=== PATIENT | male | born 1985 | race American Indian/Alaskan Native ===

== ENCOUNTER 2020-12-14 08:58 | Emergency (ER) | payer SELFPAY ==
--- NOTE | 2020-12-14 09:28 | Emergency Department Report ---
ED ENT HPI - General Chief complaint: Dental/Oral Stated complaint: ABCESS Time Seen by Provider: 12/14/20 09:06 Source: patient Mode of arrival: Ambulatory Limitations: No Limitations - History of Present Illness Initial comments: The patient was evaluated in the emergency department for symptoms described in the history of present illness. He/she was evaluated in the context of the global COVID-19 pandemic, which necessitated consideration that the patient might be at risk for infection with the virus that causes COVID-19. Institutional protocols and algorithms that pertain to the evaluation of patients at risk for COVID-19 are in a state of rapid change based on information released by regulatory bodies including the CDC and federal and sta organizations. These policies and algorithms were followed during the patient's care in the emergency department. Please note that these policies, procedures and recommendations changed on a rapid basis. 35-year-old male presents to the emergency room for right lower jaw abscess x2 days. Patient states he is aware that he has had bad tooth. He denies any past medical history currently takes no medications on a daily basis. No known drug allergies. Patient is a transgender. For first to go by a male. He reports that he had broke his tooth from eating ice because of low iron. Patient does report history of heavy menstrual cycle. Patient is okay for me to referral to a [facility]. MD complaint: tooth pain Onset/Timin -: days(s) Location: tooth # (1) Severity scale (0 -10): 9 Quality: stabbing, sharp Consistency: constant Improves with: none Worsens with: none Context- Dental: history of dental caries, poor dental care Associated Symptoms: gum swelling, toothache - Related Data Previous Rx's Medication Instructions Recorded Last Taken Type Amoxicillin/K Clav Tab [Augmentin 1 tab PO Q12HR 10 Days #20 tab 12/14/20 Unknown Rx 875 mg] Naproxen 500 mg PO Q12H PRN #20 tablet 12/14/20 Unknown Rx Allergies Allergy/AdvReac Type Severity Reaction Status Date / Time No Known Allergies Allergy Unverified 12/14/20 09:03 ED Dental HPI - General Chief complaint: Dental/Oral Stated complaint: ABCESS Time Seen by Provider: 12/14/20 09:06 Source: patient Mode of arrival: Ambulatory Limitations: No Limitations - Related Data Previous Rx's Medication Instructions Recorded Last Taken Type Amoxicillin/K Clav Tab [Augmentin 1 tab PO Q12HR 10 Days #20 tab 12/14/20 Unknown Rx 875 mg] Naproxen 500 mg PO Q12H PRN #20 tablet 12/14/20 Unknown Rx Allergies Allergy/AdvReac Type Severity Reaction Status Date / Time No Known Allergies Allergy Unverified 12/14/20 09:03 ED Review of Systems ROS: Stated complaint: ABCESS Other details as noted in HPI Comment: All other systems reviewed and negative ED Past Medical Hx - Past Medical History Previous Medical History?: No - Surgical History Past Surgical History?: No - Medications Home Medications: Home Medications Medication Instructions Recorded Confirmed Last Taken Type Amoxicillin/K Clav Tab [Augmentin 1 tab PO Q12HR 10 Days #20 tab 12/14/20 Un known Rx 875 mg] Naproxen 500 mg PO Q12H PRN #20 tablet 12/14/20 Unknown Rx ED Physical Exam - General Limitations: No Limitations General appearance: alert, in no apparent distress - Head Head exam: Present: atraumatic, normocephalic - Eye Eye exam: Present: normal appearance - ENT ENT exam: Present: mucous membranes moist - Expanded ENT Exam Expanded Teeth exam: Present: dental caries, dental tenderness #, gingival enlargement - Neck Neck exam: Present: normal inspection - Respiratory Respiratory exam: Present: normal lung sounds bilaterally. Absent: respiratory distress - Cardiovascular Cardiovascular Exam: Present: regular rate, normal rhythm. Absent: systolic murmur, diastolic murmur, rubs, gallop - GI/Abdominal GI/Abdominal exam: Present: soft, normal bowel sounds - Rectal Rectal exam: Present: deferred - Extremities Exam Extremities exam: Present: normal inspection - Back Exam Back exam: Present: normal inspection - Neurological Exam Neurological exam: Present: alert, oriented X3 - Psychiatric Psychiatric exam: Present: normal affect, normal mood - Skin Skin exam: Present: warm, dry, intact, normal color. Absent: rash ED Course Vital Signs 12/14/20 12/14/20 09:02 09:48 Temperature 99.2 F Pulse Rate 79 76 Respiratory 16 16 Rate Blood Pressure 122/75 Blood Pressure 108/71 [Left] O2 Sat by Pulse 99 100 Oximetry ED Medical Decision Making - Medical Decision Making 35-year-old male presents to the emergency room for right lower jaw abscess x2 days. Patient states he is aware that he has had bad tooth. He denies any past medical history currently takes no medications on a daily basis. No known drug allergies. Patient is a transgender. For first to go by a male. He reports that he had broke his tooth from eating ice because of low iron. Patient does report history of heavy menstrual cycle. Patient is okay for me to referral to a [facility]. Patient placed on Augmentin 875 p.o. twice daily pain medication and referral to dentist as well as [facility] for heavy menstrual period. Critical care attestation.: If time is entered above; I have spent that time in minutes in the direct care of this critically ill patient, excluding procedure time. ED Disposition Clinical Impression: Dental abscess Disposition: HOME / SELF CARE / HOMELESS Is pt being admited?: No Does the pt Need Aspirin: No Condition: Stable Instructions: Dental Abscess, [id number] Additional Instructions: Complete antibiotics as prescribed. Very important for you to follow-up with a dentist. Naproxen as needed for pain. I have also referred you to [facility] for d iscussion of heavy menstrual cycles. Prescriptions: Amoxicillin/K Clav Tab [Augmentin 875 mg] 1 tab PO Q12HR 10 Days #20 tab Naproxen 500 mg PO Q12H PRN #20 tablet PRN Reason: Pain , Severe (7-10) Referrals: [facility] [Outside] - 3-5 Days [facility] [Outside] - 3-5 Days [facility] [Outside] - 3-5 Days [facility] [Provider Group[facility] - 3-5 Days [facility] [Provider Group] - 3-5 Days [facility] [Provider Group] - 3-5 Days Forms: Work/School Release Form(ED) Time of Disposition: 09:28
[2020-12-14 09:49] VITALS: BP 108/71
== END 2020-12-14 09:50 | disposition home or self-care (01) ==
LOC: ED 08:58
DX: K04.7 Periapical abscess without sinus (principal); Z79.899 Other long term (current) drug therapy
CPT/HCPCS: 99281